=== PATIENT | female | born 1985 | race Caucasian/White ===

== ENCOUNTER 2021-08-10 23:50 | Emergency (ER) | payer OTHER ==
[2021-08-11 03:11] LABS: BASOPHIL 0.3 % (0-2); EOSINOPHIL 0.1 % (0-5); HCT 40.6 % (37.0-47.0); HGB 13.5 g/dl (12.5-16.0); LYMPHOCYTE 6.8 % (15-48); MCH 29.9 pg (25.0-31.0); MCHC 33.3 g/dL (32.0-36.0); MCV 89.8 fL (78.0-100.0); NEUTROPHIL 87.3 % (41-80); NRBC 0; PLT 359 K/uL (150-400); RBC 4.52 M/uL (4.20-5.40); RDW 11.9 % (11.5-14.0); WBC 18.3 K/uL (4.0-10.5)
[2021-08-11 03:19] LABS: ALBUMIN 3.5 g/dL (3.4-5.0); BILIRUBIN - TOTAL 0.4 mg/dL (0.2-1.0); BUN/CREAT RATIO (CALC) 11.4 RATIO; CREATININE 0.79 mg/dL (0.51-0.95); GLOBULIN (CALCULATION) 3.6 g/dL; POTASSIUM 3.6 mmol/L (3.5-5.1); TOTAL PROTEIN 7.1 g/dL (6.4-8.2)
[2021-08-11 04:22] LABS: BILIRUBIN NEGATIVE (NEGATIVE); BLOOD 3+ Ery/uL (NEGATIVE); CLARITY CLEAR (CLEAR); COLOR YELLOW (YELLOW); GLUCOSE (U) NORMAL (NORMAL); LEUKOCYTES NEGATIVE Leu/uL (NEGATIVE); NITRITE NEGATIVE (NEGATIVE); PROTEIN NEGATIVE (NEGATIVE); SPECIFIC GRAVITY <=1.005 (1.001-1.030); UROBILINOGEN 0.2 mg/dL (0.2-1.0)
[2021-08-11 04:32] LABS: BACTERIA TRACE; SQUAMOUS EPITHELIAL CELLS RARE
[2021-08-11] MEDS ORDERED: ONDANSETRON ODT4 MG PO (07:34)
[2021-08-11] MEDS ORDERED: AMOX TR-K CLV1 EAC4 PO (07:34)
== END 2021-08-11 07:57 | disposition home or self-care (01) ==
LOC: FER 23:50
PROVIDERS: Internal Medicine
DX: K57.32 Diverticulitis of large intestine without perforation or abscess without bleeding (principal); I10 Essential (primary) hypertension; Z88.6 Allergy status to analgesic agent
CPT/HCPCS: 36415; 80053; 81001; 83605; 84145; 85025; 87040; J0696